=== PATIENT | female | born 1995 | race Caucasian/White ===

== ENCOUNTER → 2019-03-19 15:50 | Outpatient (CLI) | payer OTHER, SELFPAY ==
--- NOTE | 2019-03-19 16:12 | RAD_ITS ---
STUDY: X-RAY - ABDOMEN/PELVIS REASON FOR EXAM: Female, 23 years old. BILATERAL KIDNEY CALCULUS TECHNIQUE: 2 Frontal views of the abdomen were performed COMPARISON: None. FINDINGS: Normal visualized lung bases. There is an unremarkable bowel gas pattern. There is no demonstrated free abdominal air. The visualized liver, spleen and kidneys are grossly normal in size and morphology. Normal soft tissue structures. Normal visualized osseous structures. RAD/Abdomen Single View IMPRESSION: Normal x-ray examination of the abdomen and pelvis. No urinary calculi on plain films. Electronically Signed: Carlita Montana, at 18:11 EST Tel , Service support ,
[2019-03-19 17:22] LABS: Anion Gap 6 (5-15); BUN 13 mg/dL (7-18); BUN/Creat Ratio 16.1 RATIO (10-20); Calcium,Total 8.6 mg/dL (8.5-10.1); Chloride 109 mmol/L (98-107); Creatinine, Serum 0.81 mg/dL (0.55-1.02); EST Glomerular Filtration Rate 92 mL/min (>60); Est Glom Filt Rate - Afr Amer 111 mL/min (>60); Glucose 84 mg/dL (74-106); Potassium 3.8 mmol/L (3.5-5.1); Sodium Level 141 mmol/L (136-145); Uric Acid 4.7 mg/dL (2.6-6.0)
== END ==
LOC: LAB 15:56
PROVIDERS: PCP Family Medicine; Referring Provider Nurse Practitioner Adult Health; Visit Provider Nurse Practitioner Adult Health
DX: N20.0 Calculus of kidney (principal)
CPT/HCPCS: 36415; 74018; 80048; 83970; 84550

== ENCOUNTER 2023-09-11 19:23 | Inpatient (IN) | payer BC, MEDICAID, SELFPAY ==
[2023-09-11 19:20] VITALS: BMI 43.8
--- NOTE | 2023-09-11 19:33 | PCM.HP.OB ---
HPI - General General Date of Admission: 09/11/23 HPI Narrative LEXIS JOHNSON, is a 28 F at 39.5 weeks gestation who presents for induction of labor for obesity. Maternal Data Information YOLANDA Calculator Estimated Delivery Date Method Current WG Current Estimate 09/13/23 Manual 39w 5d ROS Eyes Eyes: Denies blurry vision, change in vision or spots in vision ENT HEENT: Denies dizziness or headache(s) Cardiovascular Cardiovascular: Denies abdominal pain, chest pain or dyspnea Respiratory/Chest Respiratory/Chest: Denies cough, dyspnea, shortness of breath at rest or shortness of breath with exertion Gastrointestinal Gastrointestinal: Denies abdominal pain, diarrhea or vomiting Genitourinary Genitourinary: Denies change in urinary stream, difficulty urinating or dysuria Musculoskeletal Musculoskeletal: Reports none Integumentary Integumentary: Denies rash Neurologic Neurologic: Denies dizziness, headache(s), memory loss or weakness Psychiatric Psychiatric: Reports none Vital Signs Vital Signs Vital Signs: Weight Weight: 232 lb 2.348 oz Body Mass Index (BMI) 43.8 Physical Exam Const alert, oriented x3 and no apparent distress General Appearance: cooperative Orientation / Consciousness: awake Exam Limitations: no limitations HEENT normocephalic Head and Scalp: normal to inspection Eyes General Eye: normal appearance of both eyes Neck full ROM and no lymphadenopathy Lymph Lymphatic: no lymphadenopathy noted Chest inspection of chest normal Resp normal respiratory effort, normal air movement and clear to auscultation bilaterally Effort and Inspection: able to speak in complete sentences and symmetric chest movement Cardio regular rate and regular rhythm GI normal to inspection, nondistended, normoactive bowel sounds Manual OB Exam: presentation cephalic Back/Spine normal ROM Extremity full ROM and no calf tenderness Skin no rashes or lesions noted General Skin Exam: no breakdown Neuro oriented x3 and CN's II-XII intact bilaterally Psych mental status grossly normal and thought process normal Labs Labs Labs: No Data to Display GBS negative Assessment & Plan (1) 39 weeks gestation of : (2) Encounter for induction of labor: (3) Obesity affecting : (4) Hypothyroid: (5) Anxiety and depression: (6) History of kidney stones: (7) Body mass index (BMI) greater than 40: PLAN: Plan Admit to labor and delivery Routine labs Start IV and run fluids per orders' Cytotec 25 mcg PO every 4 hours with a maximum of 6 doses Anticipate placement of whiting catheter Dr. Valdez notified of admission and is collaborating physician
[2023-09-11 19:43] VITALS: BP 123/68; PULSE 91; RESP 16; TEMP 36.9
[2023-09-11] MEDS: Lactated Ringers 1,000 ML 50 ML IV (20:00)
[2023-09-11 20:17] LABS: Absolute Lymphocyte Count 1.78 X10^3/uL (0.83-4.51); Absolute Neutrophil Count 8.5 X10^3/uL (2.0-7.7); Basophil# 0.05 X10^3/uL; Basophil% 0.4 % (0-1); Eosinophil# 0.12 X10^3/uL; Hematocrit 30.5 % (37-47); Hemoglobin 9.4 g/dL (12.0-15.0); Lymphocyte # 1.78 X10^3/ul (0.83-4.51); Lymphocyte % 15.5 % (19-41); Mean Corp Hgb Conc 30.8 g/dL (32-36); Mean Corpuscular Hgb 23.7 pg (27.0-32.0); Monocyte# 1.05 X10^3/uL; Monocyte% 9.1 % (0-10); NRBC Flagged by Analyzer 0 % (0-5); Neutrophil # 8.45 X10^3/uL (2.7-7.7); Neutrophil % 73.5 % (47-70); Platelet Count 309 K/mm3 (150-450); RBC Distribution Width CV 16.2 % (11.6-14.6); RBC Distribution Width SD 44.6 fl (35.1-43.9); Red Blood Count 3.96 M/mm3 (4.2-5.4); White Blood Count 11.5 K/mm3 (4.4-11.0)
[2023-09-11] MEDS: Oxytocin 15 Units/NS 250ml 15 UNITS/250 ML IV.SOLN 2 UNITS IV (20:28)
[2023-09-11 20:50] VITALS: BP 124/68; PULSE 81; RESP 16; O2SAT 100
[2023-09-11 20:51] LABS: Syphilis Antibodies Non-reactive
[2023-09-11] MEDS: 0.9% Normal Saline Single 100 ML IV.SOLN. INTRA-UTER (21:47)
[2023-09-11 21:55] VITALS: BP 119/69; PULSE 75; O2SAT 98
[2023-09-11 21:56] VITALS: RESP 16; TEMP 36.9
--- NOTE | 2023-09-11 22:14 | PCM.PN.CNM ---
Subjective Subjective Patient seen at bedside. Ambulating and sitting on birthing ball. Objective Data Objective Data Vital Signs: Vital Signs Temp Pulse Resp BP Pulse Ox 98.4 F 75 16 119/69 98 09/11/23 21:56 09/11/23 21:55 09/11/23 21:56 09/11/23 21:55 09/11/23 21:55 Weight: 232 lb 2.348 oz Body Mass Index (BMI) 43.8 Lab / Micro Data 09/11/23 20:00 Labs: Laboratory Results - last 24 hr 09/11/23 20:00: WBC 11.5 H, RBC 3.96 L, Hgb 9.4 L, Hct 30.5 L, MCV 77.0 L, MCH 23.7 L, MCHC 30.8 L, RDW Std Deviation 44.6 H, RDW Coeff of Patt 16.2 H, Plt Count 309, MPV 12.0, Immature Gran % (Auto) 0.500, Neut % (Auto) 73.5 H, Lymph % (Auto) 15.5 L, [place] % (Auto) 9.1, Eos % (Auto) 1.0, Baso % (Auto) 0.4, Absolute Neuts (auto) 8.5 H, Absolute Lymphs (auto) 1.78, Nucleated RBC % 0, Syphilis Total Ab Non-reactive, Blood Type A POSITIVE, Antibody Screen NEGATIVE Assessment & Plan (1) Body mass index (BMI) greater than 40: (2) Anxiety and depression: (3) Obesity affecting : (4) Encounter for induction of labor: (5) 39 weeks gestation of : PLAN: Plan Cat. 1 tracing, NST reactive CE 0.5cm/50/-3 Booker bulb catheter placed with AROM for copious amounts of clear fluid Pitocin IV - start at 2 mu/min and increase per orders Patient desires unmedicated labor and delivery
[2023-09-11 23:46] VITALS: BP 125/57; PULSE 81; RESP 16; TEMP 36.3; O2SAT 97
[2023-09-12] VITALS (50 sets, daily range): BP systolic 84–121; BP diastolic 47–68; PULSE 66–90; RESP 16–18; TEMP 36.1–37.4; O2SAT 95–100
[2023-09-12] MEDS: Acetaminophen 500 MG Tablet PO (04:28)
[2023-09-12] MEDS: Lactated Ringers 1,000 ML 999 ML IV (06:52)
--- NOTE | 2023-09-12 08:24 | EX.PCM.OBRPT ---
Assessment & Plan (1) Body mass index (BMI) greater than 40: (2) Anxiety and depression: (3) Obesity affecting : (4) (spontaneous vaginal delivery): (5) Care and examination of lactating mother: Maternal Data Information YOLANDA Calculator Estimated Delivery Date Method Current WG Current Estimate 09/13/23 Manual 39w 6d Vaginal Delivery Maternal Presentation Maternal Presentation: Medically Indicated Induction Maternal Presentation: at 39.6 weeks for induction of labor for obesity. Type of Induction: Pitocin, Booker Bulb and Amniotomy Medical Reason for Induction: Maternal Medical Condition: list: (Obesity BMI >40) Operative Information Date of Procedure: 09/12/23 Pre-Operative Diagnosis: Term gestation, Induction of labor Post-Operative Diagnosis: , Live female infant Surgery / Procedure Performed: Spontaneous Vaginal Delivery Type of Anesthesia: None Estimated Blood Loss: 200 Time of Delivery: 08:07 Findings Description of Procedure: Called to patient room to assist with laboring. Patient progressing quickly and bearing down involuntarily. Complete dilation +2 station. With maternal effort, head delivered followed by anterior shoulder and remainder of body. Vigorous female placed on maternal abdomen and attended to by nursing staff. Pitocin IV started for active management of the third stage of labor. 3 vessel cord clamped and cut by FOB after delay. Infant placed skin to skin with patient. Placenta delivered spontaneously and intact. Vagina with small laceration that obtained hemostasis. Perineum intact. No suturing. Fundus firm 2 below U. APGARS 8/9 EBL 200 cc. Patient and infant bonding well at this time. Dr. Rausch notified of delivery. Presentation: Vertex Amniotic Membrane Rupture Type: Artificial Time of Membrane Rupture: 2146 Amniotic Fluid Description: Clear Placental Delivery Description: Spontaneous Placenta Disposition: [facility] Cord Vessel Description: 3 Vessels Cord Entanglement: None Infant A Gender: Female (1 minute): 8 (5 minute): 9 Delayed Cord Clamping: Yes Post Vaginal Delivery Medications Given After Delivery: IV Pitocin Episiotomy Description: None Laceration: None Complication Complications: None
[2023-09-12] MEDS: Oxytocin 15 Units/NS 250ml 15 UNITS/250 ML IV.SOLN 83 UNITS IV (08:50)
[2023-09-12] MEDS: Acetaminophen 500 MG Tablet 1000 MG PO ×2 (10:02→20:19)
[2023-09-12] MEDS: Levothyroxine 100 MCG Tablet 200 MCG PO (10:43)
[2023-09-12] MEDS: 0.9% Saline Lock 10 ML Syringe IV (10:43)
[2023-09-13] VITALS (9 sets, daily range): BP systolic 111–120; BP diastolic 55–72; PULSE 83–92; RESP 16–18; TEMP 36.7–36.9; O2SAT 97–99
[2023-09-13] MEDS: Levothyroxine 100 MCG Tablet 200 MCG PO (05:46)
--- NOTE | 2023-09-13 08:38 | DS.PCM_ITS ---
Providers Date of Admission: 09/11/23 Primary Care Physician: Dr. Mariama Faustin MD Reason For Visit: VAG DELIVERY Diagnosis Discharge Diagnosis (1) Body mass index (BMI) greater than 40: Status: Acute (2) Anxiety and depression: Status: Acute Code(s): F41.9 - Anxiety disorder, unspecified; F32.A - Depression, unspecified (3) Obesity affecting : Status: Acute Code(s): O99.210 - Obesity complicating , unspecified trimester (4) (spontaneous vaginal delivery): Status: Acute Code(s): O80 - Encounter for full-term uncomplicated delivery (5) Care and examination of lactating mother: Status: Acute Code(s): Z39.1 - Encounter for care and examination of lactating mother Plan PPD 2 support D/C home Medications at Discharge Home Medications levothyroxine 200 mcg tablet 200 mcg PO DAILY hypothyroidism 09/11/23 acetaminophen 500 mg tablet 1,000 mg (2 x 500 mg) PO Q6H PRN PRN Pain 1-10 Or Fever #0 tabs 09/13/23 naproxen 500 mg tablet 500 mg PO Q8H PRN PRN Pain Score 1-10 #0 tabs 09/13/23 Hospital Course Operations None Procedures None Summary of Care Provided Minutes Spent on Discharge: 15 Hospital Course: Patient had . Hospital course was uneventful Physical Exam Narrative Patient seen at bedside. . Ambulating and voiding without difficulty. Lochia decreasing. Desires discharge home today. Const alert and no apparent distress General Appearance: cooperative and comfortable Exam Limitations: no limitations HEENT normocephalic Eyes General Eye: normal appearance of both eyes Neck full ROM General: normal visual inspection Chest Chest: symmetrical chest wall rise Resp normal respiratory effort and normal air movement Effort and Inspection: symmetric chest movement Auscultation: clear to auscultation bilaterally Cardio regular rate and regular rhythm GI normal to inspection, nondistended, normoactive bowel sounds Back/Spine normal ROM Extremity full ROM and no calf tenderness General Extremity: normal exam except as noted Skin no rashes or lesions noted Neuro CN's II-XII intact bilaterally Psych mental status grossly normal Weight / BMI Weight Weight: 232 lb 2.348 oz Body Mass Index (BMI) 43.8 ABG / Lab / Microbiology Data 09/11/23 20:00 D/C Instructions Discharge Diet: No restrictions May resume sexual activity in: 6-8 weeks Weight Bearing Status: Weight bearing as tolerated Call your doctor if you observe: Fever of 101 or Higher, Inability to urinate, Using more than 1 pad per hour, Shortness of breath, Chest pain, Calf discomfort and Uncontrolled pain Please Follow Up With: Asha Manley CNM When: 2 weeks virtual visit/ 6 weeks in office Meaningful Use Info Meaningful Use Meaningful Use Diagnoses (Choose all that apply): None applicable Ischemic Stroke Statin Dosing Therapy Reference: STATIN DOSE THERAPY REFERENCE: * Patients > 75 years receive moderate or high dose statin therapy. * Patients 75 years or YOUNGER should receive HIGH intensity statin dose unless contraindicated. You will be required to document reason for non-treatment if statin daily dose does not meet guidelines. HIGH DOSE STATIN THERAPY DAILY Atorvastatin > than or = to 40 mg Rosuvastatin > than or = to 20 mg Amlodipine + Atorvastatin > than or = to 2.5/40 mg Ezetimibe + Simvastatin 10/80 mg Simvastatin 80mg Discharge Plan Admission Admit Date/Time: 09/11/23 19:23 Primary Reason for Your Visit: Labor and Delivery Attending Provider: Asha Manley Primary Care Provider: Mariama Faustin Discharge Orders/Prescriptions Prescriptions: New acetaminophen 500 mg Tablet 1,000 mg PO Q6H PRN PRN (Reason: Pain 1-10 Or Fever) Qty: 0 0RF naproxen 500 mg Tablet 500 mg PO Q8H PRN PRN (Reason: Pain Score 1-10) Qty: 0 0RF Continued levothyroxine 200 mcg tablet 200 mcg PO DAILY Referrals / Follow Up: Asha Manley CNM [Med Staff - [facility] Practice Prof] - Mariama Faustin MD [Primary Care Provider] - Disposition Disposition (needs filled in before D/C Order can be placed): Home, Self Care
--- NOTE | 2023-09-13 10:58 | CASEMGMT ---
Addendum entered by Emily Quiles 09/13/23 11:30: Social Work Please note: No toxicology screens documented in chart for MOB or baby. NOMI Etienne Original Note: Social Work Assessment Labor and Delivery Unit Date/Time of referral: 09/13/23, 10:30am Referred by: RN Date/Time of intervention: 09/13/23, 10:30am Reason for referral: history of anxiety and depression History obtained from: MOB and FOB Household composition: MOB Kim, Lisa Estrada(age 7) and now baby Kimberlyn. JUN and GIAN have been together for 9 years, not . They are the parents of both children. Parent/guardian status: MOB is the guardian of the children. Medical History: MOB: history of depression and anxiety, obesity affecting the , hypothyroid, history of kidney stones Baby: Born 09/12/23, Apgars 8 and 9 at one and five minutes, 3530g at . Educational Status: JUN completed some college, GIAN has his GED Financial Concerns: None. FORadames works in a [employer] 3rd shift, JUN works from home for the [employer]. GIAN does not have insurance and needs to wait for open enrollment to get insurance, plans to do so. SW did speak w/him about insurance through [employer], encouraged him to explore this should he need insurance before open enrollment. JUN has insurance through her work and has Medicaid--though states her income may be too high and may lose the Medicaid. JUN carries the insurance for the children. Infant Supplies: They have all needed supplies for baby including diapers, wipes, clothing, crib, bassinet, car seat. JUN plans to breast feed. They had supplies from their first child and just sold them all prior to this in a yard sale, then found out MOB was . MOB and GIAN explain that they tried for 7 years and couldn't get , so got rid of everything only to find out MOB was . Childcare/Caregivers: MOB and FOB, MOB and FOB's mothers, MOB aunts and uncles in the area who can help. 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 They both report a good support system in the area and have family that are available to help if needed. Transportation: They have 2 vehicles Programs/Agencies involved: None. JUN reports has Medicaid but is losing it due to her income being too high. She did use [employer] with her first child, but does not feel the need for [employer] now. Children's Services/Legal Issues: None Behavioral Health issues: Substance Abuse: Both FOB and MOB report no history of substance abuse. Mental Health: FORadames reports history of anxiety, depression, ADHD. He state is stable, was diagnosed as a teen. He is not in counseling at present and not on medications. FOB reports that he has not found medications that have been helpful for him. Counseling has been helpful at times, but we dependent on who the counselor was. PUSHPA encouraged GIAN to try counseling again should he have any struggles in the future regarding mental health. GIAN states understanding. JUN reports history of anxiety, depression, panic attacks. She sates she has been stable with the depression, does state has had some rough days with her anxiety. JUN states was on Zoloft, went off of it right before learning was as she has liver issues and physician informed her Zoloft is not the best for someone with these issues. JUN does plan to speak w/her physician about trying another medication now that she has had the baby. JUN also reports being diagnosed as a teen. She has been in counseling but not since she was a child, may consider counseling again. Pt familiar with grounding techniques and coping mechanisms, and has ways to help herself when struggling w/anxiety and panic attacks. JUN reports now that her child is here, she is feeling good, and her anxiety is in check. She states she was worried about the process, and her sister in law just miscarried so this was on her mind. JUN reports that they are concerned their children may struggle w/anxiety and sees already her 7 year old having some struggles. PUSHPA encouraged her to consider counseling for her daughter as it may help her find ways to manage it, MOB states understanding. SW did ask FORadames to step out, SW checked in w/MOB and she reports no safety concerns at this time. SW inquired if she wanted FOB added to demographics as he is not listed, she does, SW will add to demographics. Family/Social Stressors: None reported at this time. Support Systems: MOB's and FOB's mothers, extended families. Depression/Anxiety/Shaken baby/Safe Sleeping/Mental Health Resources/[facility] Resources/[employer]: SW gave MOB resources on all of these topics and reviewed them w/MOB. SW reviewed in particular information about PPD and anxiety, encouraged MOB to reach out and consider counseling, should she be having increased symptoms. She already plans to speak w/her physician about getting back on anxiety medications. SW also pointed out to MOB crisis hotlines if needed. Assessment: SW spoke w/FOB and MOB initially, then MOB on her own. Both appropriate w/SW, answered all questions. FOB holding baby when SW entered room and appropriate in care of child. MOB engaging, expressive, and appropriate. Plan: Baby will go home w/MOB and FOB at discharge, no further social work administrator anticipated at this time. NOMI Etienne
[2023-09-13] MEDS: MEASLES,MUMPS,RUBELLA VACC/PF 0.5 ML SC (15:50)
== END 2023-09-13 17:40 | disposition home or self-care (01) | DRG 807 ==
PROVIDERS: Admitting Provider Advanced Practice Midwife; PCP Family Medicine; Visit Provider Advanced Practice Midwife
DX: O99.214 Obesity complicating childbirth (principal); Z37.0 Single live birth; O99.344 Other mental disorders complicating childbirth; E03.9 Hypothyroidism, unspecified; F32.A Depression, unspecified; F41.9 Anxiety disorder, unspecified; O99.284 Endocrine, nutritional and metabolic diseases complicating childbirth; Z3A.39 39 weeks gestation of pregnancy; O71.4 Obstetric high vaginal laceration alone; Z87.442 Personal history of urinary calculi
CPT/HCPCS: 59025; 59050; 85025; 86780; 86850; 86900; 86901; 99221; J7120; A4216; G0378